=== PATIENT | male | born 1955 | race Caucasian/White ===

== ENCOUNTER 2018-03-07 19:48 | Inpatient (IN) | payer OTHER ==
[~2018-03-07] VITALS: Ht 177.8 cm; Wt 91.7 kg
[2018-03-07 20:28] LABS: BASOPHILS % (AUTO) 0 % (0-1); EOSINOPHILS # (AUTO) 0.01 x10^3/uL (0-0.4); EOSINOPHILS % (AUTO) 0 % (1-7); LYMPHOCYTES # (AUTO) 0.36 x10^3/uL (1-3.4); LYMPHOCYTES % (AUTO) 5 % (22-44); MD NO; MEAN CORPUSCULAR HEMOGLOBIN 29.5 pg (27.5-34.5); MEAN CORPUSCULAR HGB CONC 34.2 g/dL (33.2-36.2); MEAN CORPUSCULAR VOLUME 86.1 fL (81-97); MEAN PLATELET VOLUME 9.9 fL (7.4-10.4); MONOCYTES # (AUTO) 0.37 x10^3/uL (0.2-0.8); MONOCYTES % (AUTO) 5 % (2-9); NEUTROPHILS # (AUTO) 6.11 x10^3/uL (1.8-6.8); NEUTROPHILS % (AUTO) 89 % (42-75); PLATELET COUNT 152 x10^3/uL (130-400); RED BLOOD COUNT 5.25 x10^6/uL (4.38-5.82); RED CELL DISTRIBUTION WIDTH 14.3 % (9.4-14.8)
[2018-03-07] MEDS ORDERED: ACETAMINOPHEN 500 MG TABLET PO ONE (20:30)
[2018-03-07] MEDS ORDERED: ONDANSETRON ODT 4 MG PO ONE (20:30)
[2018-03-07 20:45] LABS: ALBUMIN 3.5 g/dL (3.4-5.0); ANION GAP 10 mmol/L (5-15); CALCIUM 8.7 mg/dL (8.5-10.1); CHLORIDE 102 mmol/L (98-107); CREATININE 1.07 mg/dL (0.7-1.3)
[2018-03-07] MEDS ORDERED: SODIUM CHLORIDE 0.9% 1,000ML IVBOLUS ONE (21:30)
[2018-03-07] MEDS ORDERED: SODIUM CHLORIDE FLUSH 10ML SYR IVF ONE (21:30)
[2018-03-07] MEDS ORDERED: KETOROLAC 30 MG/1 ML IVPush ONE (21:30)
[2018-03-07] MEDS ORDERED: PROMETHAZINE 25 MG/ML, 1ML IM ONE (21:30)
[2018-03-07] MEDS ORDERED: ONDANSETRON ODT 4 MG ONE (21:40)
[2018-03-07] MEDS ORDERED: ACETAMINOPHEN 500 MG TABLET ONE (21:40)
[2018-03-07] MEDS ORDERED: KETOROLAC 30 MG/1 ML ONE (21:40)
[2018-03-07 21:54] LABS: ALANINE AMINOTRANSFERASE 36 U/L (12-78); ALBUMIN 3.4 g/dL (3.4-5.0); BILIRUBIN, DIRECT 0.2 mg/dL (0.1-0.2)
[2018-03-07 21:58] LABS: ALKALINE PHOSPHATASE 61 U/L (45-117); BILIRUBIN,INDIRECT 0.7 mg/dL (0.0-2.0); BILIRUBIN,TOTAL 0.9 mg/dL (0.2-1.0); TOTAL PROTEIN 6.8 g/dL (6.4-8.2); TROPONIN I 0.057 ng/mL (0.000-0.045)
[2018-03-07 22:19] LABS: MICROSCOPIC NOT IND
[2018-03-07 22:23] LABS: CULTURE INDICATED? NO
[2018-03-07] MEDS ORDERED: ASPIRIN 81 MG TABLET CHEW PO ONE (23:00)
[2018-03-07] MEDS ORDERED: ASPIRIN 81 MG TABLET CHEW ONE (23:05)
[2018-03-07] MEDS ORDERED: LISI1TAB7 PO (23:08)
[2018-03-08 00:27] VITALS: BP 118/75
[2018-03-08 00:59] VITALS: BP 118/75
[2018-03-08] MEDS ORDERED: ONDANSETRON ODT 4 MG PO PRN (04:00)
[2018-03-08] MEDS ORDERED: BISACODYL 10 MG SUPP PR PRN (04:00)
[2018-03-08] MEDS ORDERED: hydrALAzine 20 MG/ML, 1ML IVPush PRN (04:00)
[2018-03-08] MEDS ORDERED: ACETAMINOPHEN 325 MG TABLET PO PRN (04:00)
[2018-03-08] MEDS ORDERED: morphine SULFATE 10 MG/ML, 1ML IVPush PRN (04:00)
[2018-03-08] MEDS ORDERED: POTASSIUM CHLORIDE 40 MEQ in SODIUM CHLORIDE 0.9% 500 ML IV ONE (04:00)
[2018-03-08] MEDS ORDERED: POLYETHYLENE GLYCOL 17 GM PACKET PO PRN (04:00)
[2018-03-08] MEDS ORDERED: OXYcodone IR 5MG TABLET PO PRN (04:00)
[2018-03-08] MEDS ORDERED: ONDANSETRON 2MG/ML, 2ML IVPush PRN (04:00)
[2018-03-08] MEDS ORDERED: DOCUSATE 100 MG CAPSULE PO PRN (04:00)
[2018-03-08] MEDS ORDERED: PANTOPRAZOLE 40 MG IV IVPush SCH (04:00)
[2018-03-08] MEDS ORDERED: PROMETHAZINE 25 MG/ML, 1ML IM PRN (04:00)
[2018-03-08] MEDS ORDERED: ENALAPRILAT 1.25 MG/ML, 2ML IVPush PRN (04:00)
[2018-03-08] MEDS ORDERED: LABETALOL 5MG/ML, 20ML IVPush PRN (04:00)
[2018-03-08] MEDS: SODIUM CHLORIDE 0.9% 1,000 ML IV SCH ×2 (04:24→14:15)
[2018-03-08] MEDS: HEPARIN 5,000 UNITS/ML, 1ML SQ SCH ×2 (04:53→14:15)
[2018-03-08] MEDS ORDERED: PNEUMOCOCCAL 23 VACCINE IM-VACC ONE (06:00)
[2018-03-08 06:21] LABS: HEMOGLOBIN A1C 5.6 % (4.2-6.3)
[2018-03-08 06:28] LABS: FREE T4 (FREE THYROXINE) 1.06 ng/dL (0.76-1.46); THYROID STIMULATING HORMONE 0.562 mIU/L (0.358-3.740)
[2018-03-08 07:27] VITALS: BP 103/67
[2018-03-08] MEDS ORDERED: OMNIPAQUE 350 MG/ML, 100ML BOTTLE ONE (08:07)
[2018-03-08 10:43] LABS: TROPONIN I 0.041 ng/mL (0.000-0.045)
[2018-03-08 13:47] VITALS: BP 133/89
== END 2018-03-08 14:35 | disposition home or self-care (01) | DRG 699 ==
LOC: ED 22:48 → EDIP 22:53 → ED 23:17 → 5SO 03-08 00:12
PROVIDERS: ADMIT Internal Medicine; ATTEND Internal Medicine
DX: N28.1 Cyst of kidney, acquired (principal); E87.1 Hypo-osmolality and hyponatremia; E87.6 Hypokalemia; R42 Dizziness and giddiness; E78.5 Hyperlipidemia, unspecified; I10 Essential (primary) hypertension; N40.0 Benign prostatic hyperplasia without lower urinary tract symptoms; Z79.82 Long term (current) use of aspirin; Z80.3 Family history of malignant neoplasm of breast; Z80.42 Family history of malignant neoplasm of prostate; R91.1 Solitary pulmonary nodule; R11.2 Nausea with vomiting, unspecified; R50.9 Fever, unspecified; Z79.899 Other long term (current) drug therapy
CPT/HCPCS: 36415; 71046; 71275; 74177; 78452; 80048; 80076; 81003; 82040; 83036; 83690; 83735; 84439; 84443; 84484; 85025; 85379; 87040; 90732; 93005; 93017; 93306; 96361; 96374; J1644; J1885; J3480; Q0162; Q9967; A9502; C9113; C9898; J7030; J7040